=== PATIENT | female | born 1935 | race Caucasian/White ===

== ENCOUNTER → 2017-05-03 | Outpatient (CLI) | payer OTHER | LOC: CIMAGING 14:25 | PROVIDERS: ATTEND Internal Medicine | DX: Z12.31 Encounter for screening mammogram for malignant neoplasm of breast (principal); Z85.3 Personal history of malignant neoplasm of breast | CPT/HCPCS: G0202 ==

== ENCOUNTER → 2018-08-24 | Outpatient (CLI) | payer OTHER | LOC: CIMAGING 10:51 | PROVIDERS: ATTEND Internal Medicine | DX: Z12.31 Encounter for screening mammogram for malignant neoplasm of breast (principal); Z85.3 Personal history of malignant neoplasm of breast ==

== ENCOUNTER → 2018-09-09 | Outpatient (CLI) | payer OTHER | LOC: CIMAGING 12:52 | PROVIDERS: ATTEND Internal Medicine | DX: R92.8 Other abnormal and inconclusive findings on diagnostic imaging of breast (principal) ==

== ENCOUNTER → 2018-10-11 | Day surgery (SDC) | payer OTHER | LOC: FIMAGING 07:21 ==

== ENCOUNTER 2018-12-05 06:32 | Day surgery (SDC) | payer OTHER ==
[2018-12-05] MEDS ORDERED: ceFAZolin 2 GM/DEXTROSE 100 ML IV ONE (06:44)
[2018-12-05] MEDS ORDERED: LR 1,000 ML IV ONE (06:45)
--- NOTE | 2018-12-05 07:10 | PDHPUP ---
History & Physical Update H&P update statement: This history and physical update is based on an assessment of the patient which was completed after admission or registration (within 24 hours), but prior to the surgery/procedure. H&P update: H&P reviewed & patient examined, no change in patient's condition since H&P completed
[2018-12-05] MEDS ORDERED: LIDOCAINE 1% 300 MG/30 ML SDV ONE (08:06)
[2018-12-05] MEDS ORDERED: THROMBIN (BOVINE) 5,000 UNIT VIAL TP ONE (08:56)
[2018-12-05] MEDS ORDERED: BUPIVACAINE 0.5% 30 ML SDV ONE (08:56)
[2018-12-05] MEDS ORDERED: MIDAZOLAM 2 MG/2 ML VIAL IVP ONE (10:30)
--- NOTE | 2018-12-05 10:30 | PDANEPAE ---
ANE History of Present Illness 83 yo for lumpectomy ANE Past Medical History - Cardiovascular History Hx Hypertension: Yes Hx Chest Pain: Yes Hx Coronary Artery / Peripheral Vascular Disease: Yes - Pulmonary History Hx Oxygen in Use at Home: Yes O2 in Use at Home (L/minute): 4 Hx Sleep Apnea: Yes - Endocrine History Hx Diabetes: No ANE Review of Systems Review of Systems: - Exercise capacity METS (RN): 3 METS ANE Patient History - Allergies Allergies/Adverse Reactions: Penicillins Allergy (Intermediate, Verified 05/16/15 10:15) Rash - Home Medications Home medications: home medication list seen and reviewed Home Medications: Atorvastatin Calcium 05/16/15 [Last Taken 12/04/18] Levothyroxine 05/16/15 [Last Taken 12/04/18] Losartan-Hctz 100-25 mg Tab 05/16/15 [Last Taken 12/04/18] Metoprolol Tartrate 05/16/15 [Last Taken 12/04/18] Plavix 05/16/15 [Last Taken 11/30/18] - NPO status NPO Status: no food or drink >8 hours NPO Since - Liquids (Date): 12/04/18 NPO Since - Solids (Date): 12/04/18 - Anes Hx Anes Hx: no prior problems - Smoking Hx Smoking Status: Former smoker ANE Labs/Vital Signs - Vital Signs Blood Pressure: 154/87 Heart Rate: 83 Respiratory Rate: 15 O2 Sat (%): 92 Height: 5 ft 1 in Weight: 117.934 kg ANE Physical Exam - Airway Neck exam: FROM Mallampati Score: Class 2 Mouth exam: normal dental/mouth exam - Pulmonary Pulmonary: no respiratory distress - Cardiovascular Cardiovascular: regular rate and rhythym - ASA Status ASA Status: III ANE Anesthesia Plan Anesthesia Plan: MAC
[2018-12-05] MEDS ORDERED: MIDAZOLAM 2 MG/2 ML VIAL ONE (10:31)
[2018-12-05] MEDS ORDERED: PROPOFOL/EMULSION 500 MG/50 ML BOTTLE IV ONE (10:37)
[2018-12-05] MEDS ORDERED: fentaNYL 100 MCG/2 ML INJ ONE (10:37)
[2018-12-05] MEDS ORDERED: fentaNYL 100 MCG/2 ML INJ IVP PRN (11:20)
[2018-12-05] MEDS ORDERED: ONDANSETRON 4 MG/2 ML VIAL IVP PRN (11:20)
[2018-12-05] MEDS ORDERED: NALOXONE HCL 0.4 MG/ML INJ IVP PRN (11:20)
--- NOTE | 2018-12-05 11:45 | POSTOPPROG ---
Post Op Note Date of Operation: 12/05/18 Surgeon: Adonay Wade Visual Merchandising Associate: Dain Anesthesiologist: Gwendolyn Anesthesia: IV Sedation Pre-op Diagnosis: DCIS Post-op Diagnosis: same Indication: Same Procedure: R breast lumpectomy with needle loc Findings: Specimen contained needle per radiology Inf/Abcess present in the surg proc area at time of surgery?: No Depth: Superfical (Skin SQ) EBL: Minimal Bowel Protocol: N/A Clean Closure Performed: N/A Drains: Khris Rubi Specimen(s): Right breast mass
--- NOTE | 2018-12-05 12:35 | POSTANESTH ---
Post Anesthetic Evaluation Cardiovascular Status: Normal, Stable Respiratory Status: Normal, Stable Level of Consciousness/Mental Status: Can Participate in Eval Pain Control: Adequate, Prn Tx Ordered Nausea/Vomiting Control: Adequate, Prn Tx Ordered Complications Possibly Related to Anesthesia: None Noted
[2018-12-05 12:39] VITALS: BP 116/74
== END 2018-12-05 12:53 | disposition home or self-care (01) ==
LOC: FIMAGING 06:32 → EDSTATUS 09:30 → FIMAGING 12:53
PROVIDERS: ATTEND Surgery
PROC: BH00ZZZ Plain Radiography of Right Breast (ICD-10-PCS; principal; 2018-12-05 09:30)
PROC: 0HBT0ZZ Excision of Right Breast, Open Approach (ICD-10-PCS; principal; 2018-12-05 09:30)
DX: D05.11 Intraductal carcinoma in situ of right breast (principal); Z17.0 Estrogen receptor positive status [ER+]; I25.10 Atherosclerotic heart disease of native coronary artery without angina pectoris; Z95.5 Presence of coronary angioplasty implant and graft; E11.9 Type 2 diabetes mellitus without complications; E78.5 Hyperlipidemia, unspecified; E03.9 Hypothyroidism, unspecified; G47.33 Obstructive sleep apnea (adult) (pediatric); M19.90 Unspecified osteoarthritis, unspecified site; Z96.641 Presence of right artificial hip joint; Z96.652 Presence of left artificial knee joint; Z87.891 Personal history of nicotine dependence
CPT/HCPCS: J0690; J2250; J2704; J3010

== ENCOUNTER 2018-12-22 10:27 | Day surgery (SDC) | payer OTHER ==
--- NOTE | 2018-12-21 10:33 | GHP ---
[f rep st] PREOP HISTORY AND PHYSICAL DATE OF ADMISSION: 12/22/2018 CHIEF COMPLAINT: Breast cancer, right breast. HISTORY OF PRESENT ILLNESS: The patient is an 83-year-old female with history of remote right breast cancer who presents to our clinic today for postoperative followup. She is status post right lumpec chitra on 12/05/2018. Her pathology revealed invasive carcinoma of no special type. The distance from the closest margin is less than 1 mm at the anterior margin. The anterior margin is also positive f or DCIS. No lymph nodes were submitted or found. From a surgery standpoint, she reports that she is doing well. Her pain is well controlled, and she denies fever and chills. PAST MEDICAL HISTORY: Arthritis, breast cancer, cataracts, chronic pain, congestive heart failure, c oronary artery disease, diabetes type 2, heart attack, high cholesterol, hypertension, hypothyroidism , obesity, sleep apnea. PAST SURGICAL HISTORY: Appendectomy, back surgery, breast surgery, carpal tunnel release, cataract s urgery, laparoscopic cholecystectomy, hip replacement, knee replacement, right breast lumpectomy. MEDICATIONS: Atorvastatin 40 mg, Plavix 75 mg, CoQ10, duloxetine, furosemide 20 mg, losartan 50 mg, metoprolol tartrate 25 mg, milk thistle, multivitamin, vitamin D. ALLERGIES: Penicillin. FAMILY MEDICAL HISTORY: Thyroid cancer, colon cancer. SOCIAL HISTORY: The patient is a former smoker. She drinks alcohol occasionally. PHYSICAL EXAM: GENERAL: Well-appearing elderly female, in no acute distress. HEENT: Normocephalic , atraumatic. No gross hearing deficit. Mucous membranes moist. CARDIAC: Regular rate and rhythm. No clicks, murmurs, or rubs. CHEST: Clear to auscultation bilaterally. No wheezes, rales, or rho nchi. ABDOMEN: Soft, nontender, nondistended. EXTREMITIES: Moves all extremities equally x4. LEROY ROLOGIC: Alert and oriented x3. PSYCHIATRIC: Appropriate mood and affect. RIGHT BREAST: Incision is clean, dry, and intact without surrounding signs of infection. IMPRESSION AND PLAN: This is a very pleasant 83-year-old female status post right lobectomy on 12/05. Her pathology revealed positive margins for ductal carcinoma in situ, with invasive carcinoma less than 1 mm from the anterior margin as well. She will need re-excision. We discussed our risks and options. Risks of surgery include, but are not limited to, infection, bleeding, need for furthe r surgery, hematoma, heart attack, and . Patient understands and wishes to proceed. She will n eed to hold her Plavix 3 days prior to surgery. /[id number]/MODL
[2018-12-22] MEDS ORDERED: LR 1,000 ML IV ONE (10:47)
[2018-12-22] MEDS ORDERED: ceFAZolin 2 GM/DEXTROSE 100 ML IV ONE (10:47)
[2018-12-22] MEDS ORDERED: BUPIVACAINE 0.5% 30 ML SDV ONE (10:56)
[2018-12-22] MEDS ORDERED: LIDOCAINE 1% 300 MG/30 ML SDV ONE (10:56)
[2018-12-22] MEDS ORDERED: HYDROGEN PEROXIDE 236 ML BOTTLE TP ONE (10:57)
[2018-12-22] MEDS ORDERED: NA BICARBONATE 50 MEQ/50 ML VIAL ONE (10:57)
[2018-12-22] MEDS ORDERED: THROMBIN (BOVINE) 5,000 UNIT VIAL TP ONE (10:57)
[2018-12-22] MEDS ORDERED: oxyCODONE IR 5 MG TAB PO PRN (11:39)
[2018-12-22] MEDS ORDERED: NALOXONE HCL 0.4 MG/ML INJ IVP PRN (11:39)
[2018-12-22] MEDS ORDERED: HYDROmorphONE/DILAUDID 1 MG/ML INJ IVP PRN (11:39)
[2018-12-22] MEDS ORDERED: MIDAZOLAM 2 MG/2 ML VIAL IVP ONE (11:39)
[2018-12-22] MEDS ORDERED: ONDANSETRON 4 MG/2 ML VIAL IVP PRN (11:39)
[2018-12-22] MEDS ORDERED: PROMETHAZINE HCL 25 MG/ML INJ IVP PRN (11:39)
[2018-12-22] MEDS ORDERED: fentaNYL 100 MCG/2 ML INJ IVP PRN (11:39)
[2018-12-22] MEDS ORDERED: PROPOFOL/EMULSION 500 MG/50 ML BOTTLE IV ONE (11:44)
[2018-12-22] MEDS ORDERED: METOCLOPRAMIDE 10 MG/2 ML VIAL ONE (11:50)
[2018-12-22] MEDS ORDERED: ONDANSETRON 4 MG/2 ML VIAL ONE (11:50)
--- NOTE | 2018-12-22 12:15 | PDANEPAE ---
ANE History of Present Illness R breast ANE Past Medical History - Cardiovascular History Hx Hypertension: Yes Hx Chest Pain: Yes Hx Coronary Artery / Peripheral Vascular Disease: Yes Cardiovascular History Comment: [place] 2006. STENTS X2 2006 - Pulmonary History Hx COPD: No Hx Asthma/Reactive Airway Disease: No Hx Recent Upper Respiratory Infection: No Hx Oxygen in Use at Home: Yes O2 in Use at Home (L/minute): NOC O2 4L Hx Sleep Apnea: Yes Sleep Apnea Screening Result - Last Documented: Positive Pulmonary History Comment: SLEEP APNEA W/CPAP - Neurologic History Hx Cerebrovascular Accident: No Hx Seizures: No Hx Dementia: No - Endocrine History Hx Diabetes: No Endocrine History Comment: DM II - Renal History Hx Renal Disorders: No - Liver History Hx Hepatic Disorders: No - Neurological & Psychiatric Hx Hx Neurological and Psychiatric Disorders: No - Cancer History Hx Cancer: Yes Cancer History Comment: R BREAST CA - GI History Hx Gastrointestinal Disorders: No - Other Health History Other Health History: NEG - Chronic Pain History Chronic Pain: Yes (ARMS - ARTHRITIS) - Surgical History Prior Surgeries: APPENDECTOMY. BACK SURGERY. BRAIN & SPINE. CHOLECYSTECTOMY. CARPAL TUNNEL R. CATARACTS. R IVORY. L TKA. LUMPECTOMY R ANE Review of Systems Review of Systems: - Exercise capacity METS (RN): 4 METS ANE Patient History - Allergies Allergies/Adverse Reactions: Penicillins Allergy (Intermediate, Verified 05/16/15 10:15) Rash - Home Medications Home Medications: Atorvastatin Calcium 05/16/15 [Last Taken 12/21/18] Metoprolol Tartrate 05/16/15 [Last Taken 12/21/18] Plavix 05/16/15 [Last Taken 12/19/18] HCTZ (*) 12/21/18 [Last Taken 12/21/18] Losartan Potassium 12/21/18 [Last Taken 12/21/18] - NPO status NPO Since - Liquids (Date): 12/22/18 NPO Since - Liquids (Time): 09:00 NPO Since - Solids (Date): 12/21/18 NPO Since - Solids (Time): 22:00 - Smoking Hx Smoking Status: Former smoker ANE Labs/Vital Signs - Labs Result Diagrams: 12/22/18 11:25 - Vital Signs Blood Pressure: 163/71 Heart Rate: 80 Respiratory Rate: 16 O2 Sat (%): 92 Height: 154.94 cm Weight: 117.934 kg ANE Physical Exam - Airway Neck exam: FROM Mallampati Score: Class 2 Mouth exam: normal dental/mouth exam - Pulmonary Pulmonary: clear to auscultation - Cardiovascular Cardiovascular: regular rate and rhythym - ASA Status ASA Status: III ANE Anesthesia Plan Anesthesia Plan: GA with mask
[2018-12-22] MEDS ORDERED: PHENYLEPHRINE HCL 100 MCG/ML SYR ONE (12:22)
--- NOTE | 2018-12-22 12:56 | POSTANESTH ---
Post Anesthetic Evaluation Cardiovascular Status: Normal, Stable Respiratory Status: Normal, Stable Level of Consciousness/Mental Status: Can Participate in Eval, Alert and Oriented Pain Control: Adequate, Prn Tx Ordered Nausea/Vomiting Control: Adequate, Prn Tx Ordered Complications Possibly Related to Anesthesia: None Noted
--- NOTE | 2018-12-22 13:07 | POSTOPPROG ---
Post Op Note Date of Operation: 12/22/18 Surgeon: Adonay Wade Hooker Laster: Dain Anesthesiologist: Neto Anesthesia: IV Sedation Pre-op Diagnosis: DCIS, Invasive ductal CA Post-op Diagnosis: same Indication: Positive margins from previous surgery Procedure: R breast lumpectomy re-excision Inf/Abcess present in the surg proc area at time of surgery?: No Depth: Superfical (Skin SQ) EBL: Minimal Drains: Khris Rubi Specimen(s): Superior, Anterior and lateral margins.
[2018-12-22] MEDS ORDERED: fentaNYL 100 MCG/2 ML INJ ONE (13:15)
[2018-12-22] MEDS ORDERED: oxyCODONE IR 5 MG TAB ONE (13:31)
[2018-12-22 14:11] VITALS: BP 132/66
== END 2018-12-22 14:29 | disposition home or self-care (01) ==
LOC: FSGY 10:27
PROVIDERS: ATTEND Surgery
PROC: 0HBT0ZZ Excision of Right Breast, Open Approach (ICD-10-PCS; principal; 2018-12-22 12:45)
DX: C50.911 Malignant neoplasm of unspecified site of right female breast (principal); I50.9 Heart failure, unspecified; I25.10 Atherosclerotic heart disease of native coronary artery without angina pectoris; E11.9 Type 2 diabetes mellitus without complications; E78.5 Hyperlipidemia, unspecified; I25.2 Old myocardial infarction; I11.0 Hypertensive heart disease with heart failure; E03.9 Hypothyroidism, unspecified; E66.9 Obesity, unspecified; G47.33 Obstructive sleep apnea (adult) (pediatric); Z95.5 Presence of coronary angioplasty implant and graft
CPT/HCPCS: J0690; J2250; J2370; J2405; J2704; J2765; J3010

== ENCOUNTER → 2019-01-17 | Outpatient (CLI) | payer OTHER | LOC: BRMIMAGING 13:43 ==